=== PATIENT | male | born 1990 | race Hispanic/Latino ===

== ENCOUNTER 2025-01-23 09:13 | Emergency (ER) | payer SELFPAY ==
[2025-01-23 10:20] LABS: BASO # 0.1 10^3/uL (0.0-0.2); BASO % 0.6 % (0.0-1.0); EOS # 0.2 10^3/uL (0.0-0.5); EOS % 1.8 % (0.0-3.0); LYMPH # 3.7 10^3/uL (1.5-5.0); LYMPH % 39.3 % (24.0-44.0); MONO # 0.8 10^3/uL (0.0-0.8); MONO % 8.4 % (2.0-8.0); NEUTROPHILS # 4.7 10^3/uL (1.5-8.5); NEUTROPHILS % 49.3 % (36.0-66.0); PLATELET COUNT, AUTOMATED 146 10^3/uL (150-450)
[2025-01-23 10:41] LABS: ALT/SGPT 84 U/L (7.0-40); AST/SGOT 38 U/L (<34); CALCIUM LEVEL 8.9 MG/DL (8.5-10.1); CARBON DIOXIDE LEVEL 27 MMOL/L (20-31); CHLORIDE LEVEL 108 MMOL/L (98-107); CREATININE FOR GFR 0.63 MG/DL (0.70-1.30); GLOMERULAR FILTRATION RATE > 90.0 (>60); POTASSIUM SERUM 3.6 MMOL/L (3.5-5.1); SODIUM LEVEL 147 MMOL/L (136-145)
[2025-01-23] MEDS: FLUORESCEIN OPHTH 1 MG STRIP OS ONE (11:12)
[2025-01-23] MEDS: TETRACAINE 0.5% OPHTH SOLN 4ML OS ONE (11:12)
[2025-01-23] MEDS ORDERED: HOME MED LIST COMPLETE! XX SCH (12:25)
[2025-01-23] MEDS: TETANUS/DIPHTH/ACEL. PERTUSSIS 0.5 ML SYR IM.IMMUN ONE (12:32)
[2025-01-23] MEDS: ERYTHROMYCIN OPHTH OINT OS ONE (12:32)
[2025-01-23] MEDS: NS (Normal Saline) 0.9% 1,000 ML IV ONE (13:04)
[2025-01-23 13:16] LABS: INR 0.99
[2025-01-23 13:51] VITALS: BP 153/92; TEMP 96.1; O2SAT 98
== END 2025-01-23 13:59 | disposition short-term general hospital (02) ==
LOC: M ED 09:13
DX: S09.90XA Unspecified injury of head, initial encounter (principal); S40.022A Contusion of left upper arm, initial encounter; S80.11XA Contusion of right lower leg, initial encounter; H53.131 Sudden visual loss, right eye; S02.40E Zygomatic fracture, right side; T15.02XA Foreign body in cornea, left eye, initial encounter; V49.50XA Passenger injured in collision with unspecified motor vehicles in traffic accident, initial encounter; I45.4 Nonspecific intraventricular block; Y92.410 Unspecified street and highway as the place of occurrence of the external cause; Y93.89 Activity, other specified; Y99.9 Unspecified external cause status